=== PATIENT | female | born 2000 | race Caucasian/White ===

== ENCOUNTER → 2021-08-13 | Outpatient (CLI) | payer OTHER ==
--- NOTE | ~2021-08-13 | EEG ---
[address] [address] EEG STUDY REPORT Name: DEX WEINER Room: [facility]#: [id number] Admission: 08/13/21 Attend Phys: Lovely Salazar MD, Discharge: Date of : 00 Report #: [id number] THIS REPORT FOR: cc: Nav Alexander MD, Steven E. MD Khosla,Keanu Miller MD ~ DATE OF SERVICE: 08/13/2021 This patient is being evaluated for the possibility of a seizure. EEG was done by placing the electrode by standard 10-20 system of electrode placement. Both referential and sequential montages were used for recording. The patient went to sleep and that is associated with bilateral slowing and vertex sharp waves. Photic stimulation is unremarkable. Throughout the record, no active epileptiform activity was noticed. IMPRESSION: This patient's EEG is within normal limits. It might be mentioned that EEG can be normal in a patient with seizure disorder. Thank you very much for this referral. By: [id number] 1830Keanu Hermosillo MD /nt
== END ==
LOC: M.CRD 14:00
PROVIDERS: ATTEND Internal Medicine
DX: R56.9 Unspecified convulsions (principal)